=== PATIENT | male | born 1980 | race African-American/Black ===

== ENCOUNTER 2023-11-22 22:30 | Emergency (ER) | payer BC ==
[2023-11-22 23:14] LABS: #Eosinphils 0.1 thou/uL (0.0-0.7); #Monocytes 1.6 thou/uL (0.11-0.59); #Neutrophils 8.7 thou/uL (1.40-6.50); %Basophils 0.5 % (0.0-1.0); %Eosinophils 0.5 % (0.0-10.0); %Lymphocytes 8.6 % (21.0-51.0); %Monocytes 13.8 % (0.0-10.0); %Neutrophils 76.6 % (42.0-75.0); Hemoglobin 9.2 g/dL (14.0-18.0); Manual Diff?? NO; Mean Corpuscular HGB CONC 27.9 g/dL (32.0-36.0); Mean Corpuscular Hemoglobin 17.9 pg (27.0-31.0); Mean Corpuscular Volume 64.2 fl (78.0-98.0); Mean Platelet Volume 6.1 fL (7.4-10.4); Platelet Count 373 10x3/uL (130-400); RBC Distribution Width 17.6 % (11.5-14.5); Red Blood Cell (RBC) Count 5.13 mill/uL (4.70-6.10); White Blood Cell (WBC) Count 11.3 10x3/uL (4.8-10.8)
[2023-11-22 23:15] LABS: #Basophils 0.1 thou/uL (0.0-0.2); Anisocytosis MARKED = >30 cells (100X) (0-5/hpf); Hypochromia MARKED = >30 cells (100X) (0-5/hpf); Microcytosis MODERATE=15-30 cells (100X) (0-5/hpf); Platelet Adequacy Comment Appears Adequate; Poikilocytosis MODERATE=16-30 cells (100X) (0-5/hpf)
[2023-11-22 23:18] LABS: ALT (SGPT) 888 U/L (8-55); AST (SGOT) 621 U/L (5-34); Albumin 3.4 g/dL (3.5-5.0); Alkaline Phosphatase 203 U/L (40-110); Anion Gap 18 mmol/L (10-20); BUN (Urea Nitrogen) 38 mg/dL (8.9-20.6); Bilirubin, Total 1.5 mg/dL (0.2-1.2); Calc. Creatinine Clearance 0 mL/min (70-130); Calcium 8.3 mg/dL (7.8-10.44); Carbon Dioxide 20 mmol/L (22-29); Chloride 106 mmol/L (98-107); Estimated GFR 46; Globulin 2.7 g/dL (2.4-3.5); Glucose 110 mg/dL (70-105); Lipase 29 U/L (8-78); Potassium 4.2 mmol/L (3.5-5.1); Protein, Total 6.1 g/dL (6.0-8.3); Sodium 140 mmol/L (136-145)
[2023-11-22 23:19] LABS: Troponin I 0.043 ng/mL (< 0.028)
[2023-11-22] MEDS ORDERED: Labetalol HCl 100 MG/20 ML VIAL ONE (23:28)
[2023-11-22] MEDS ORDERED: Furosemide 40 MG (4 mL) VIAL ONE (23:28)
[2023-11-22] MEDS ORDERED: Aspirin Chewable 81 MG TAB ONE (23:29)
== END 2023-11-23 01:40 | disposition short-term general hospital (02) ==
LOC: NAV ERS 22:30
DX: I16.1 Hypertensive emergency (principal); I11.0 Hypertensive heart disease with heart failure; I50.20 Unspecified systolic (congestive) heart failure; R74.01 Elevation of levels of liver transaminase levels; R79.1 Abnormal coagulation profile
CPT/HCPCS: 71046; 80053; 83690; 83880; 84484; 85025; 85379; 93005; 96374; 96375; J1940